=== PATIENT | male | born 1985 | race Caucasian/White ===

== ENCOUNTER → 2022-06-01 16:50 | Outpatient (CLI) | payer BC, SELFPAY ==
--- NOTE | ~2022-06-01 | MR_ITS ---
EXAMINATION: MR lumbar spine wo con DATE: 06/01/2022 17:26 INDICATION: Low back pain. Left foot drop. TECHNIQUE: Magnetic resonance imaging (MRI) of the lumbar spine was performed without intravenous con trast. Sequences included sagittal T2-weighted FSE, sagittal T2-weighted FS FSE, sagittal T1-weighted FSE, and axial T2-weighted FSE. COMPARISON: None FINDINGS: Bone alignment is normal. There is mild chronic anterior wedging of T12 vertebral body. The re are Schmorl's nodes at most levels. There is mildly decreased disc height from L2-L3 through L4-L5 . The distal spinal cord signal intensity is normal. The conus medullaris is at L1. The following dis c levels are specifically discussed: L1-L2: The disc does not extend beyond the endplate margin. There is mild bilateral facet joint osteo arthritis. There is no neural foraminal stenosis. There is no central canal stenosis. L2-L3: The disc is bulging with superimposed right central extrusion. There is mild bilateral facet j oint osteoarthritis. There is mild bilateral neural foraminal stenosis. There is mild central canal s tenosis. There is moderate stenosis of right lateral recess. L3-L4: The disc is bulging with superimposed central extrusion. There is mild bilateral facet joint o steoarthritis. There is mild bilateral neural foraminal stenosis. There is mild central canal stenosi s. L4-L5: The disc is bulging with superimposed left central extrusion with mass effect on left L5 nerve root in left lateral recess. There is mild bilateral facet joint osteoarthritis. There is mild bilat eral neural foraminal stenosis. There is mild central canal stenosis. There is moderate stenosis of l eft lateral recess. L5-S1: The disc is mildly bulging. There is severe right and moderate left facet joint osteoarthritis . There is mild left neural foraminal stenosis. There is mild central canal stenosis. IMPRESSION: 1. Moderate lumbar spondylosis. Of note, an extrusion at L4-L5 exerts mass effect on left L5 nerve ro ot. Reviewed, dictated and finalized at location A. IMPRESSION: 1. Moderate lumbar spondylosis. Of note, an extrusion at L4-L5 exerts mass effe ct on left L5 nerve root.
== END ==
PROVIDERS: PCP Internal Medicine; Visit Provider Neurological Surgery
DX: M21.372 Foot drop, left foot (principal); M47.896 Other spondylosis, lumbar region; M51.26 Other intervertebral disc displacement, lumbar region
CPT/HCPCS: 72148

== ENCOUNTER 2023-11-16 08:49 | Emergency (ER) | payer OTHER, SELFPAY ==
--- NOTE | ~2023-11-16 | XR_ITS ---
EXAMINATION: [id number] DATE: 11/16/2023 09:32 INDICATION: Left rib pain. Fall. TECHNIQUE: A frontal view of the chest and 2 views on 3 radiographs of the left ribs were obtained. COMPARISON: None. FINDINGS: There is no pneumonia, pleural effusion, or pneumothorax. The heart size is normal. There a re old healed left rib fractures. There is an acute fracture of left ninth rib. IMPRESSION: 1. Acute fracture of left ninth rib. Reviewed, dictated and finalized at location E. OR BOOKKEEPER
[2023-11-16 09:07] VITALS: BP 131/83; PULSE 71; RESP 16; TEMP 36.6; O2SAT 99
--- NOTE | 2023-11-16 09:53 | ED.GENADULT ---
HPI - General Adult General Chief complaint: Chest Pain Stated complaint: L RIB INJURY Time Seen by Provider: 11/16/23 09:15 Source: patient and RN notes reviewed Mode of arrival: ambulatory Limitations: no limitations History of Present Illness HPI narrative: Patient presents today complaining of left lateral rib pain after falling on ice while hunting last night. He currently rates his pain 7/10 and has been taking ibuprofen with mild relief. Pain increases with movement or deep breath. Related Data Home Medications Medication Instructions Recorded Confirmed folic acid 1 mg tablet 1 mg PO DAILY 06/24/22 11/16/23 Allergies Allergy/AdvReac Type Severity Reaction Status Date / Time NKDA Allergy Mild Unknown Uncoded 06/24/22 13:56 Review of Systems Review of Systems: CONSTITUTIONAL: Denies body aches, fever, chills, or sweats. EYES: Denies visual changes, redness, or discharge. ENT: Denies rhinorrhea, congestion, sore throat, or otalgia. CARDIOVASCULAR: Denies chest pain, palpitations, or edema. RESPIRATORY: Denies cough or dyspnea.+ left rib pain GASTROINTESTINAL: Denies abdominal pain, nausea, vomiting, or diarrhea. GENITOURINARY: Denies dysuria or hematuria. SKIN: Denies rash, itching, or wounds. MUSCULOSKELETAL: Denies back pain, joint pain, or myalgia. NEUROLOGIC: Denies headache, numbness, tingling, or weakness. PSYCH: Denies depression or anxiety. [facility] Family History Family History Mother Diabetes mellitus Thyroid disorder Social History Social History Smoking status: Never smoker Comments At time of signature, I have reviewed and agree with nursing past medical, surgical, social and family history unless otherwise noted. Please see nursing chart for further information. There is no relevant family history pertinent to the presenting complaint Exam Narrative: GENERAL: Well-appearing, well-nourished, and in no acute distress. HEAD: Normocephalic, atraumatic. EYES: EOMI. No redness or drainage. Conjunctivae normal. ENT: Mucous membranes pink and moist. NECK: Normal AROM. CHEST: No respiratory distress. Clear to auscultation. Tenderness to the left lateral ribs. No edema, ecchymosis, crepitus, or deformity noted. HEART: Regular rate and rhythm. No murmur appreciated. EXTREMITIES: Normal range of motion. No edema. SKIN: Warm, dry, no rash. Capillary refill normal. Normal skin turgor. NEURO: No focal deficits. Alert and oriented x3. Gait steady. PSYCH: Normal affect. No signs of depression or anxiety. Course Course Level of Care: Express Care Visit Vital Signs Vital signs: Vital Signs Temperature 97.9 F 11/16/23 09:07 Pulse Rate 71 11/16/23 09:07 Respiratory Rate 16 11/16/23 09:07 Blood Pressure 131/83 11/16/23 09:07 Pulse Oximetry 99 11/16/23 09:07 Temperature 97.9 F 11/16/23 09:07 Pulse Rate 71 11/16/23 09:07 Respiratory Rate 16 11/16/23 09:07 Blood Pressure 131/83 11/16/23 09:07 Pulse Oximetry 99 11/16/23 09:07 Reviewed Medical Decision Making MDM Narrative Medical decision making narrative: X-ray shows fracture of left 9th rib. Patient has been encouraged to continue ibuprofen for mild pain and inflammation. Will write prescription for [place] for more severe pain. Discussed splinting and deep breathing. Anticipatory guidance given. Differential Diagnosis Differential Diagnosis: Rib fracture, rib contusion Vital Signs Vital Signs: Vital Signs Temperature 97.9 F 11/16/23 09:07 Pulse Rate 71 11/16/23 09:07 Respiratory Rate 16 11/16/23 09:07 Blood Pressure 131/83 11/16/23 09:07 Pulse Oximetry 99 11/16/23 09:07 Temperature 97.9 F 11/16/23 09:07 Pulse Rate 71 11/16/23 09:07 Respiratory Rate 16 11/16/23 09:07 Blood Pressure 131/83 11/16/23 09:07 Pulse Oximetry 9
== END 2023-11-16 10:07 | disposition home or self-care (01) ==
PROVIDERS: Emergency Provider Nurse Practitioner; PCP Internal Medicine
DX: S22.32XA Fracture of one rib, left side, initial encounter for closed fracture (principal); W00.9XXA Unspecified fall due to ice and snow, initial encounter; E78.00 Pure hypercholesterolemia, unspecified
CPT/HCPCS: 71101; 99213; G0463

== ENCOUNTER 2024-01-24 13:35 | Emergency (ER) | payer OTHER, SELFPAY ==
[2024-01-24] VITALS (7 sets, daily range): BP systolic 137–158; BP diastolic 91–106; PULSE 93–101; RESP 12–18; O2SAT 100
--- NOTE | ~2024-01-24 | CT_ITS ---
EXAMINATION: CTA chest PE protocol DATE: 01/24/2024 15:42 INDICATION: Tachycardia. Shortness of breath. TECHNIQUE: Computed tomography (CT) pulmonary angiogram of the chest was performed with 100 mL Omnipa que-350 intravenous contrast. Additional 3D reconstructions utilizing coronal maximum intensity proje ction (MIP) were performed. Automated exposure control and iterative reconstruction technique were em ployed. The dose-length product was 969.11 mGy-cm. COMPARISON: None FINDINGS: No pulmonary embolism. Mild dependent atelectasis in the bilateral lower lobes. Calcified right lower lobe nodule consistent with old granulomatous disease. No pneumonia, pulmonary edema, pleural effusi on or pneumothorax. Heart size is normal. Small amount of atherosclerotic coronary artery calcificati on. No pericardial effusion. Thoracic aorta is normal in caliber with no dissection. No pathologicall y enlarged thoracic lymphadenopathy. Visualized upper abdomen is unremarkable. Moderate thoracic spon dylosis with chronic mild anterior wedging of a few mid to lower thoracic vertebral bodies. IMPRESSION: 1. No pulmonary embolism or other acute cardiopulmonary disease. Reviewed, dictated and finalized at location A.
--- NOTE | 2024-01-24 14:00 | ECG_ITS ---
Measurements Intervals [place] Rate: 100 P: 37 NE: 164 QRS: -14 QRSD: 109 T: 52 QT: 332 QTc: 429 Interpretive Statements SINUS TACHYCARDIA POSSIBLE LEFT ATRIAL ENLARGEMENT INCOMPLETE RIGHT BUNDLE BRANCH BLOCK BORDERLINE ECG NO PREVIOUS ECG AVAILABLE FOR COMPARISON Electronically Signed On 01-24-2024 14:14:52 CDT by Vel Vasquez D.O.
--- NOTE | 2024-01-24 14:23 | ED.ARRPALP ---
HPI - Arrhythmia/Palpitations General Chief Complaint: Arrhythmia/Palpitations Stated Complaint: increased HR Time Seen by Provider: 01/24/24 14:03 History of Present Illness HPI narrative: 38-year-old male presents to the emergency department for evaluation for evaluation of rapid heart rate. Patient is currently following up with cardiology to have a Holter monitor and outpatient echocardiogram for intermittent heart palpitations. Patient states that while he was at work today he had onset of rapid heart rate with rate up into the 130s. Patient states that he felt his heart was pounding some mild she was having difficulty resting. Patient is mentally the heart rate did improve. Patient is scheduled to have follow-up with Cardiology at [place]. Related Data Home Medications Medication Instructions Recorded Confirmed folic acid 1 mg tablet 1 mg PO DAILY 06/24/22 11/16/23 Allergies Allergy/AdvReac Type Severity Reaction Status Date / Time No Known Drug Allergies Allergy Verified 01/24/24 14:26 Review of Systems Review of Systems: All systems reviewed & are unremarkable except as noted in HPI and below PMFSH Family History Family History Mother Diabetes mellitus Thyroid disorder Social History Social History Smoking status: Never smoker Exam Narrative: APPEARANCE: Well appearing, no pain, no distress, well-nourished. HEAD: normocephalic, atraumatic. EYES: PERRLA/EOMI, conjunctivae clear. NOSE: Normal no drainage EARS:TMS clear with good light reflex. THROAT: Pharynx clear, no exudate. NECK: Supple. No adenopathy, no masses. RESPIRATORY: Airway patent, respirations nonlabored. Clear to auscultation bilaterally, no rales, rhonchi, wheezing. CARDIOVASCULAR: Sinus tachycardia ABDOMINAL: Soft, nontender, nondistended, normal bowel sounds MUSCULOSKELETAL: Moves all extremities. Strength/ROM intact, No edema, No calf tenderness. NEURO: Alert. Cranial nerves II through XII intact. Grossly intact SKIN: Warm, dry. 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 Vital Signs Vital signs: Vital Signs Pulse Rate 93 01/24/24 14:42 Pulse Rate 97 01/24/24 15:46 Respiratory Rate 16 01/24/24 15:46 Blood Pressure 155/91 H 01/24/24 15:46 Pulse Oximetry 100 01/24/24 15:46 MDM - Arrhythmia/Palpitations MDM Narrative Medical decision making narrative: 38-year-old male present to the ED for evaluation of heart palpitations. Since being in the emergency department patient has had no tachycardia. Patient was afebrile with no leukocytosis and a stable hemoglobin. Patient's D-dimer was elevated but CTA PE study showed no evidence of pulmonary embolism. Patient had no significant abnormalities on his CMP. Patient's TSH was elevated. Patient was advised to decrease his alcohol consumption and to continue have close follow-up with his timber estimator as outpatient. Patient does have an outpatient Holter monitor scheduled. Patient family updated the results of the workup and they are comfortable with plan for discharge and close follow-up. Differential Diagnosis Differential diagnosis: Likely palpitations, sinus tachycardia, artial fibrillation, artial flutter, ventricular premature beats, supraventricular tachycardia and ventricular tachycardia Lab Data Attestation: I reviewed the patient's lab results. 01/24/24 14:30 01/24/24 14:30 Labs: Lab Results 01/24/24 Range/Units 14:30 WBC 6.2 (4.5-10.0) K/mm3 RBC 5.07 (4.6-6.20) M/mm3 Hgb 15.7 (14.0-18.0) g/dL Hct 44.7 (42.0-52.0) % MCV 88.2 (80-100) fl MCH 31.0 (26-34) pg MCHC 35.1 (32-36) g/dl RDW 12.5 (11.5-14.5) % Plt Count 205 (150-375) k/mm3 MPV 9.4 (7.4-10.4) fl Immature
[2024-01-24] MEDS: SODIUM CHLORIDE 0.9% IV 1,000 ML 999 ML IV CONT (14:33)
[2024-01-24 14:37] LABS: Basophils Percent Auto 0.2 % (0.2-1.2); Eosinophils Percent Auto 0.5 % (0-4.4); Hematocrit 44.7 % (42.0-52.0); Hemoglobin 15.7 g/dL (14.0-18.0); Immature Granulocyte Absolute 0.03 K/mm3 (0.00-0.031); Immature Granulocyte Percent A 0.5 % (0-0.5); Lymphocytes Absolute Auto 1.31 K/mm3 (0.9-3.2); Mean Corpuscular HGB Conc 35.1 g/dl (32-36); Mean Corpuscular Volume 88.2 fl (80-100); Mean Platelet Volume 9.4 fl (7.4-10.4); Monocytes Absolute Auto 0.7 K/mm3 (0.1-0.6); Monocytes Percent Auto 11.6 % (2.6-8.5); Neutrophils Absolute Auto 4.1 K/mm3 (1.3-6.7); Neutrophils Percent Auto 66.2 % (45.5-73.1); Platelet Count Result 205 k/mm3 (150-375); Red Blood Count 5.07 M/mm3 (4.6-6.20); Red Cell Distribution Width 12.5 % (11.5-14.5); White Blood Count 6.2 K/mm3 (4.5-10.0)
[2024-01-24 14:52] LABS: Alanine Aminotransferase 62 U/L (6-50); Albumin Level 4.8 g/dL (3.5-5.1); Alkaline Phosphatase 92 U/L (38-126); Anion Gap 7 mmol/L (4-12); Aspartate Amino Transferase 65 U/L (17-59); Bilirubin,Total 1.1 mg/dL (0.2-1.3); Blood Urea Nitrogen 14 mg/dL (9-20); Calcium 9.5 mg/dL (8.4-10.2); Carbon Dioxide 27 mmol/L (22-30); Chloride 103 mmol/L (98-107); Estimated CRCL calculation 166 ml/min; Estimated Glomerular Filt Rate > 60; Glucose 96 mg/dL (65-110); Magnesium 1.7 mg/dL (1.6-2.3); Potassium 3.4 mmol/L (3.4-5.0); Sodium 137 mmol/L (137-145)
[2024-01-24 14:56] LABS: Ethanol < 10 mg/dL (<10)
[2024-01-24 15:01] LABS: NT Pro B Type Natriuretic Pept 111 pg/mL (19.9-100)
[2024-01-24 16:16] LABS: Free T4 Free Thyroxine Reflex 1.14 ng/dL (0.78-2.19)
[2024-01-24 17:15] LABS: Total Triiodothyronine (T3) 2.22 NG/ML (0.97-1.69)
== END 2024-01-24 16:28 | disposition home or self-care (01) ==
PROVIDERS: Emergency Provider Emergency Medicine; PCP Internal Medicine
DX: R00.0 Tachycardia, unspecified (principal)
CPT/HCPCS: 36415; 71275; 80053; 80307; 83735; 83880; 84439; 84443; 84480; 85025; 85380; 93005; 96360; 99284; J7030; Q9967

== ENCOUNTER 2024-12-15 22:49 | Emergency (ER) | payer OTHER, SELFPAY ==
--- NOTE | ~2024-12-15 | XR_ITS ---
Left elbow Technique: AP, oblique, and lateral views were obtained. Clinical History: Pain Findings: No acute fracture or dislocation is seen. Osseous alignment is anatomic. Joint spaces are p reserved. There is mild enthesopathic change at the triceps tendon insertion. There is no displacemen t of the fat pads, and soft tissues are otherwise unremarkable. Impression: No acute abnormality. Reviewed, dictated and finalized at location . FEEDER Impression: No acute abnormality.
--- OUTSIDE RECORDS SUMMARY | 2024-12-15 22:51 | XMS_ITS | Clinical Summary ---
Author Organization [facility] Address [facility] access hospital[address] [place] [address] Care Team Providers Care Senior Compliance Analyst Name Role Phone Renetta Padilla MD Primary Care Provider Allergies No known active allergies Medications atorvastatin (LIPITOR) 40 MG tablet Take 1 tablet (40 mg total) by mouth daily. 12/30/2023 Active Active Problems Problem Noted Date Diagnosed Date Palpitations 01/04/2024 Hypothyroidism, unspecified 01/04/2024 Mixed hyperlipidemia 01/04/2024 Hypertriglyceridemia 01/04/2024 GERD (gastroesophageal reflux disease) Family History Medical History Relation Comments Cancer Maternal Grandmother Diabetes Mother Thyroid Disease Mother Relation Status Comments Maternal Grandmother Mother Social History Tobacco Use Types Packs/Day Years Used Date Smoking Tobacco: Former Cigarettes Q uit: 2020 Passive Smoke Exposure: Past Smokeless Tobacco: Never Alcohol Use Standard Drinks/Week Comments Yes 0 (1 standard drink = 0.6 oz pur e alcohol) Sex and Gender Information Value Date Recorded Sex Assigned at Not on file 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 Gender Identity Not on file Sexual Orientation Not on file Last Filed Vital Signs Vital Sign Reading Time Taken Comments Blood Pressure 130/82 01/08/2024 3:14 PM CDT Pulse 75 01/08/2024 3:14 PM CDT Temperature - - Respiratory Rate - - Oxygen Saturation 97% 01/08/2024 3:14 PM CDT Inhaled Oxygen Concentration - - Weight 115.2 kg (254 lb) 01/08/2024 3:14 PM CDT Height 185.4 cm (6' 1 ) 01/08/2024 3:14 PM CDT Body Mass Index 33.51 01/08/2024 3:14 PM CDT Plan of Treatment Health Maintenance Due Date Last Done Comments Annual Physical 1990 Hepatitis C 2005 Hepatitis B Vaccines (1 of 3 - 19+ 3-dose series) 2006 COVID-19 Vaccine (3 2023-2 5 season) 2024 10/31/2021, 02/04/2021 Influenza Adult (#1) 2024 09/18/2019 DTaP, Tdap and Td Vaccines ( 2 - Td or Tdap) 09/18/2029 09/18/2019 HPV Vaccines Aged Out No longer eligi ble based on patient's age to complete this topic Meningococcal B Vaccine Aged Out No l onger eligible based on patient's age to complete this topic Meningococcal Vaccine Aged Out No toni frances eligible based on patient's age to complete this topic Pneumococcal Vaccine: Pediatrics (0 to 5 Years) and At-Risk Patients (6 to 64 Years) Aged Out No longer eligible b ased on patient's age to complete this topic RSV Immunizations Under 20 Months Aged Out No longer eligible b ased on patient's age to complete this topic Insurance [facility] Care Teams Senior Compliance Analyst Relationship Specialty Start Date End Date Renetta Padilla MD [address] [place] [address] PCP - General INTERNAL MEDICINE 12/26/23
--- OUTSIDE RECORDS SUMMARY | 2024-12-15 22:51 | XMS_ITS | Clinical Summary ---
Author Organization [facility] Address [address] [address] Phone Care Team Providers Care Compensation Administrator Name Role Phone Unavailable Primary Care Provider Unavailabl e Allergies No known active allergies Medications No known medications Family History Medical History Relation Name Comments Diabetes Maternal Grandmother Diabetes Mother Thyroid Disease Mother Relation Name Status Comments Father Alive Maternal Grandmother Mother Alive Social History Tobacco Use Types Packs/Day Years Used Date Smoking Tobacco: Former Cigarettes 1 6 Smokeless Tobacco: Never Alcohol Use Standard Drinks/Week Comments Yes 15 (1 standard drink = 0.6 oz pu re alcohol) Sex and Gender Information Value Date Recorded Sex Assigned at Not on file 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 Gender Identity Not on file Sexual Orientation Not on file Last Filed Vital Signs Vital Sign Reading Time Taken Comments Blood Pressure 126/82 01/29/2016 4:04 PM CDT Pulse 73 01/29/2016 4:04 PM CDT Temperature 36.7 C (98 F) 01/29/2016 4:04 PM CDT Respiratory Rate 18 01/29/2016 4:04 PM CDT Oxygen Saturation 98% 01/29/2016 4:04 PM CDT Inhaled Oxygen Concentration - - Weight 119.3 kg (263 lb) 01/29/2016 4:04 PM CDT Height 188 cm (6' 2 ) 01/29/2016 4:04 PM CDT Body Mass Index 33.77 01/29/2016 4:04 PM CDT Plan of Treatment Health Maintenance Due Date Last Done Comments Hepatitis C Virus (HCV) Screening 1987 Hepatitis B Immunization (1 of 3 - 19+ 3-dose series) 2006 Influenza Immunization (#1) 2024 09/18/2019 SARS-COV-2 Immunization ( season) 2024 10/31/2021, 02/04/2021 Respiratory Syncytial Virus (RSV) Immunization (Adult) (1 - 1-dose 75+ series) 2062 DTaP/Tdap/Td Immunization Discontinued 09/18/2019 TdaP Immunization Completed 09/18/2019 Meningococcal Immunization (ACWY) Aged Out No longer eligible based on patient's age to complete this topic Pneumococcal Immunization Combined Aged Out No longer eligible based on patient's age to complete this topic Rotavirus Immunization Aged Out No lo nger eligible based on patient's age to complete this topic
--- OUTSIDE RECORDS SUMMARY | 2024-12-15 22:51 | XMS_ITS | Encounter Summary ---
Author Organization [facility] Address [facility] [place] [address] Care Team Providers Care Design Maker Name Role Phone Renetta Padilla MD Primary Care Provider Encounter Details Date Type Department Care Team (Late st Contact Info) Description 01/09/2024 Abstract [facility] [address] Joana Macias MA Social History Tobacco Use Types Packs/Day Years Used Date Smoking Tobacco: Former Cigarettes Q uit: 2020 Passive Smoke Exposure: Past Smokeless Tobacco: Never Alcohol Use Standard Drinks/Week Comments Yes 0 (1 standard drink = 0.6 oz pur e alcohol) Sex and Gender Information Value Date Recorded Sex Assigned at Not on file 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 Gender Identity Not on file Sexual Orientation Not on file documented as of this encounter Plan of Treatment Not on file documented as of this encounter Procedures Procedure Name Priority Date/Time Associated Diagnosis Comments COMPREHENSIVE METABOLIC PANEL Routine 11/11/2023 LIPID PANEL Routine 11/11/2023 CBC, MANUAL DIFF Routine 11/11/2023 THYROID STIM HORMONE TSH Routine 11/11/2023 documented in this encounter Results * COMPREHENSIVE METABOLIC PANEL (11/11/2023) SODIUM S/P/B 139 GLUCOSE 94 mg/dL AST 21 BUN 13 CREATININE S/P/B 0.81 0.7 - 1.3 CALCIUM S/P/B 9.3 POTASSIUM S/P/B 4.3 CHLORIDE S/P/B 103 ALT 27 GFR ESTIMATE 117 us Default History Genericprovider LABORATORY Final Result * LIPID PANEL (11/11/2023) CHOLESTEROL 251 TRIGLYCERIDES 484 HDL 38 NON HDL CHOLESTEROL 213 us Default History Genericprovider LABORATORY Final Result * CBC, MANUAL DIFF (11/11/2023) Pathologist [facility] WBC 4.7 HGB 14.5 HCT 44.3 PLT 228 us Default History Genericprovider LABORATORY Final Result * THYROID STIM HORMONE, TSH (11/11/2023) TSH 3.78 us Default History Genericprovider LABORATORY Final Result documented in this encounter Visit Diagnoses Not on filedocumented in this encounter Care Teams Design Maker Relationship Specialty Start Date End Date Renetta Padilla MD [facility] [place] [address] PCP - General INTERNAL MEDICINE 12/26/23 documented as of this encounter
[2024-12-15 22:59] VITALS: BP 126/82; PULSE 96; RESP 18; TEMP 36.4; O2SAT 100
--- NOTE | 2024-12-16 00:42 | PC.NURSE ---
Pt ambulatory to ED triage desk and states that he is not wanting to wait to be seen and states I got a x-ray done I can just look at my results tomorrow . Pt was given a mychart pamphlet and advised to stay. Pt states he is not playing the waiting game . Pt left without being seen.
--- OUTSIDE RECORDS SUMMARY | 2024-12-16 00:55 | XMS_ITS | Clinical Summary ---
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
--- OUTSIDE RECORDS SUMMARY | 2024-12-16 00:55 | XMS_ITS | Encounter Summary ---
Author Organization [facility] Address [facility] access [facility] [place] [address] Care Team Providers Care Web Site Developer Name Role Phone Renetta Padilla MD Primary Care Provider Encounter Details Date Type Department Care Team (Late st Contact Info) Description 01/09/2024 Abstract [facility] [address] Joana Macias MA Social History Tobacco Use Types Packs/Day Years Used Date Smoking Tobacco: Former Cigarettes Q uit: 2020 Passive Smoke Exposure: Past Smokeless Tobacco: Never Alcohol Use Standard Drinks/Week Comments Yes 0 (1 standard drink = 0.6 oz pur e alcohol) Sex and Gender Information Value Date Recorded Sex Assigned at Not on file 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 Gender Identity Not on file Sexual Orientation [...] Result * CBC, MANUAL DIFF (11/11/2023) Pathologist [facility] WBC 4.7 HGB 14.5 HCT 44.3 PLT 228 us Default History Genericprovider LABORATORY Final Result * THYROID STIM HORMONE, TSH (11/11/2023) TSH 3.78 us Default History Genericprovider LABORATORY Final Result documented in this encounter Visit Diagnoses Not on filedocumented in this encounter Care Teams Web Site Developer Relationship Specialty Start Date End Date Renetta Padilla MD [facility] [place] [address] PCP - General INTERNAL MEDICINE 12/26/23 documented as of this encounter
--- OUTSIDE RECORDS SUMMARY | 2024-12-16 00:55 | XMS_ITS | Clinical Summary ---
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
== END 2024-12-16 00:42 | disposition left against medical advice (07) ==
PROVIDERS: Emergency Provider Physician Assistant; PCP Internal Medicine
DX: S59.902A Unspecified injury of left elbow, initial encounter (principal)
CPT/HCPCS: 73080; 99199

== ENCOUNTER 2024-12-16 09:28 | Emergency (ER) | payer OTHER, SELFPAY ==
--- NOTE | 2024-12-16 09:31 | ED.UPPEXIN ---
HPI - Extremity Injury (Upper) General Chief Complaint: Wound/Laceration Stated Complaint: Injured Left Elbow Time Seen by Provider: 12/16/24 09:30 Source: patient Mode of arrival: ambulatory Limitations: no limitations History of Present Illness HPI narrative: Siva is a 39 year old male patient presenting to the clinic today with c/o a left elbow injury. He states he went to the ER last night, had an x-ray completed of the left elbow, and he left prior to being evaluated. Has a small laceration to the left elbow with some tissue sticking out from the wound. Injury occurred around 930 when he fell on ice in his driveway. Tetanus is unknown Related Data Home Medications ?Medication ?Instructions ?Recorded ?Confirmed ?Last Taken ?Type folic acid 1 mg tablet 1 mg PO DAILY 06/24/22 11/16/23 Unknown History Allergies Allergy/AdvReac Type Severity Reaction Status Date / Time No Known Drug Allergies Allergy Unknown Other Verified 12/16/24 09:39 Review of Systems Review of Systems: Pertinent positives per HPI. Patient denies any fever, chills, rash, headache, visual changes, dizziness, cough, runny nose, sore throat, shortness of breath, chest pain, palpitations, nausea, vomiting, diarrhea, constipation, abdominal pain, or any urinary issues. [facility] Family History Family History Mother Diabetes mellitus Thyroid disorder Social History Social History Smoking status: Never smoker Comments At the time of my signature, I reviewed and agree with the nursing past medical, surgical, social, and family history. There is no relevant family history pertinent to the patient complaint. Exam Narrative: General: Well-developed, obese, in no apparent distress Head: Normocephalic, atraumatic. Cardio: Regular rate and rhythm, s1 and s2 normal, no murmur appreciated. Resp: Clear to auscultation bilaterally, no rhonchi, rales, wheezing or rubs. Integumentary: [place], warm, and dry, 0.5 cm laceration to the left elbow with subcutaneous tissue protruding out the wound. Bleeding is controlled Course Course Emergency Course: Portions of this record may have been created with voice recognition software. Level of Care: Express Care Visit Vital Signs Vital signs: Vital Signs Temperature 37.2 C 12/16/24 09:38 Pulse Rate 90 12/16/24 09:38 Respiratory Rate 16 12/16/24 09:38 Blood Pressure 152/95 H 12/16/24 09:38 Pulse Oximetry 99 12/16/24 09:38 Oxygen Delivery Room Air 12/16/24 09:38 Temperature 37.2 C 12/16/24 09:38 Pulse Rate 90 12/16/24 09:38 Respiratory Rate 16 12/16/24 09:38 Blood Pressure 152/95 H 12/16/24 09:38 Pulse Oximetry 99 12/16/24 09:38 Oxygen Delivery Room Air 12/16/24 09:38 Vital signs reviewed Procedures Laceration Laceration 1: Date: 12/16/24 Site: upper extremity (posterior elbow laceration) Side (If applicable): left Size (cm): 0.5 Description: linear Depth: simple, single layer Local Anesthetic: lidocaine 1% and with epi Amount of anesthesia used (mL): 1 Pre-repair: wound explored, irrigated and minor debridement ====== Skin Level ====== Skin layer closed with: nylon Size (cm): 4-0 Number of sutures: 1 Technique: simple, interrupted ====== Subcutaneous Layer ====== ====== Muscle Layer ====== ====== Tendon Layer ====== Dressing: Verbal consent obtained for laceration repair. Risk and benefits explained and patient voiced understanding. Area was cleansed with antiseptic wound wash and a 27 gauge needle was then used to instill (1) ml of 1% lidocaine with epi into the wound edges. Area was prepped and draped using sterile technique. A pair of iris scissors was used to remove protruding subcutaneous tissue. A 4-0 suture on a p needle was used to place (1) interrupted sutures bringing the wound edges together- well approximated. Patient tolerated procedure well. Sterile dressing applied. MDM - Extremity Injury (Upper) MDM Narrative Medical decision making narrative: At the time of visit patient is resting comfortably on the exam table. Patient appears to be nontoxic. Laceration is over 12 hours old however it is over the elbow joint and opens up when he flexes his elbow. Will remove cutaneous tissue protruding out and place 1 suture in the wound for closure in place him on cephalexin. Diagnostics: X-ray of the left elbow was performed in the emergency room in is negative for any acute fracture or malalignment. Procedures: Laceration repair was performed placing 1 suture bringing wound edges well approximate. Medications: Tdap 0.5 mL IM given in the clinic today Plan: Patient has laceration to the left elbow with some protruding subcutaneous tissue. Subcutaneous tissue was removed. Laceration repair was performed. Will place the patient on prophylactic cephalexin since the wound is 12 hours old. Supportive measures were discussed with the patient and they voiced understanding discharge instructions and agrees to treatment plan. Return precautions reviewed Differential Diagnosis Differential diagnosis: Likely other (Elbow fracture, laceration, elbow contusion, elbow abrasion, cellulitis, wound check) Discharge Plan Discharge Clinical Impression: Laceration of elbow without complication Qualifiers: Encounter type: initial encounter Laterality: left Qualified Code(s): S51.012A - Laceration without foreign body of left elbow, initial encounter Patient Disposition: Home, Self-Care Condition: Stable Instructions: Antibiotic Form, Laceration (ED) Additional Instructions: X-rays that was performed in the ER is negative for any sign of fracture or malalignment of the left elbow Leave bandage on for 24 hours then may remove and apply band aide covering as needed. Take cephalexin as prescribed. Keep wound clean and dry Wash daily with soap and water pat dry Skin sutures out in 10-14 days. Watch for signs and symptoms of infection- redness, streaking, swelling, purulent discharge, or increase in pain. Follow up with your PCP for suture removal or return to the Express care. Patient Language: [place]ese Prescriptions: New cephalexin 500 mg capsule 500 mg PO Q12H 7 Days Qty: 14 0RF No Action hydrocodone-acetaminophen 5-325 mg tablet 1 tablet PO Q8H PRN (Reason: pain) Qty: 15 0RF folic acid 1 mg tablet 1 mg PO DAILY Follow-up/Referrals: PHYSICIAN,FARM LOAN REPRESENTATIVE [Primary Care Provider] - Time of Disposition: 09:58 Quality NIHSS Nursing Documentation ED NIHSS nursing documentation: reviewed/agree
[2024-12-16 09:38] VITALS: BP 152/95; PULSE 90; RESP 16; TEMP 37.2; O2SAT 99
[2024-12-16] MEDS: TETANUS,DIPHTHERIA,AC PERTUSSIS ADULT (0.5 ML) BOOSTRIX IM (09:50)
[2024-12-16] MEDS: LIDO 1%/EPINEPHRINE 1:100,000 20 ML VIAL INFILTRATE (09:50)
== END 2024-12-16 10:00 | disposition home or self-care (01) ==
PROVIDERS: Emergency Provider Nurse Practitioner Family
DX: S51.012A Laceration without foreign body of left elbow, initial encounter (principal); W00.9XXA Unspecified fall due to ice and snow, initial encounter; Z23 Encounter for immunization
CPT/HCPCS: 12001; 90471; 90715; 99213; G0463; J2004

== ENCOUNTER 2024-12-20 17:13 | Emergency (ER) | payer OTHER, SELFPAY ==
--- NOTE | ~2024-12-20 | XR_ITS ---
EXAMINATION: XR foot LT min 3V DATE: 12/20/2024 17:35 INDICATION: Left foot pain. TECHNIQUE: 4 views of left foot were obtained. COMPARISON: None. FINDINGS: Alignment is normal. No fracture. There is mild osteoarthritis of first metatarsophalangeal joint and some of the interphalangeal joints. There is an enthesophyte at posterior aspect of calcan eal tuberosity. IMPRESSION: 1. Mild polyarticular osteoarthritis. Reviewed, dictated and finalized at location A. 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
[2024-12-20 17:23] VITALS: BP 147/95; PULSE 82; RESP 16; TEMP 36.9; O2SAT 100
--- NOTE | 2024-12-20 18:44 | ED.GENADULT ---
HPI - General Adult General Chief complaint: Extremity Injury, Lower Stated complaint: Injured Foot Source: patient Mode of arrival: ambulatory Limitations: no limitations History of Present Illness HPI narrative: PATIENT PRESENTS FOR EVALUATION OF LEFT FOOT PAIN. SYMPTOM ONSET TODAY. HE WAS LIFTING A VERY HEAVY SCALE WITH ANOTHER CO-WORKER WHILE WORKING TODAY WHEN THE OTHER INDIVIDUAL DROPPED HIS END OF THE SCALE. THE SCALE THEN LANDED ON PATIENT'S LEFT FOOT. HE HAS REDNESS AND BRUISING TO THE DORSAL ASPECT OF THE LEFT FOOT. AT REST HIS PAIN IS 5/10 IN SEVERITY BUT BECOMES EXCRUCIATING WHEN HE BEARS WEIGHT ON THE AFFECTED EXTREMITY. HE HAS NOT TAKEN ANY MEDICATION TO ASSIST SYMPTOMS. DENIES PARESTHESIAS. HE HAS A HISTORY OF AN INJURY TO THE LEFT LOWER LEG IN THE PAST WITH CHRONIC SWELLING IN THAT LEG. 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 HE WAS WEARING HARD-TOE BOOTS AT THE TIME OF THE EVENT. Related Data Allergies Allergy/AdvReac Type Severity Reaction Status Date / Time No Known Drug Allergies Allergy Unknown Other Verified 12/20/24 17:19 Review of Systems Review of Systems: CONSTITUTIONAL: DENIES FEVER, CHILLS, OR SWEATS. EYES: DENIES VISUAL CHANGES, REDNESS, OR DISCHARGE. ENT: DENIES RHINORRHEA, CONGESTION, SORE THROAT, OR OTALGIA. CARDIOVASCULAR: DENIES CHEST PAIN, PALPITATIONS, OR EDEMA. RESPIRATORY: DENIES COUGH OR DYSPNEA. GASTROINTESTINAL: DENIES ABDOMINAL PAIN, NAUSEA, VOMITING, OR DIARRHEA. GENITOURINARY: DENIES DYSURIA OR HEMATURIA. SKIN: REPORTS REDNESS AND BRUISING TO THE LEFT FOOT MUSCULOSKELETAL: REPORTS PAIN AND SWELLING IN THE LEFT FOOT. NEUROLOGIC: DENIES HEADACHE, NUMBNESS, DIZZINESS, OR WEAKNESS. PSYCHIATRIC: DENIES ANXIETY OR DEPRESSION. [facility] Past Medical History Medical History Leg injury Surgical History Surgical History No pertinent past surgical history Family History Family History Mother Diabetes mellitus Thyroid disorder Social History Social History Smoking status: Never smoker Exam Narrative: GENERAL: WELL-APPEARING, WELL-NOURISHED, AND IN NO ACUTE DISTRESS. HEAD: NORMOCEPHALIC, ATRAUMATIC. EYES: PERRLA AND EOMI. ENT: NARES CLEAR, NO RHINORRHEA OR EPISTAXIS. MUCOUS MEMBRANES MOIST. OROPHARYNX WITHOUT TONSILLAR HYPERTROPHY EXUDATE OR OTHER LESIONS. BILATERAL TMS PE[place] NONBULGING NECK: SUPPLE. NO ADENOPATHY OR MASSES. NO CAROTID BRUITS OR JVD CHEST: CLEAR TO AUSCULTATION. NO RESPIRATORY DISTRESS. NO WHEEZES RALES OR RHONCHI HEART: REGULAR RATE AND RHYTHM. NO MURMUR HEARD. NORMAL PERIPHERAL PULSES. ABDOMEN: SOFT, NONTENDER, NONDISTENDED, NORMAL ACTIVE BOWEL SOUNDS. EXTREMITIES: NORMAL RANGE OF MOTION. LEFT FOOT IS EDEMATOUS. PATIENT HAS TENDERNESS OVER THE DORSAL ASPECT OF THE MID SECTION LEFT FOOT SKIN: THERE IS ERYTHEMA AND ECCHYMOSIS TO THE DORSAL ASPECT OF THE LEFT FOOT NEURO: NO FOCAL DEFICITS. ALERT AND ORIENTED X3. PSYCH: NORMAL MOOD AND AFFECT. Course Course Emergency Course: THIS IS A 39-YEAR-OLD MALE WHO PRESENTED FOR EVALUATION OF LEFT FOOT INJURY. HE HAS EVIDENCE OF CONTUSION. WHILE THERE IS NO FRACTURE ON X-RAY. HE COULD HAVE AN OCCULT FRACTURE. RECOMMENDED HE REMAIN NONWEIGHTBEARING TO IS CLEARED BY WORKMEN'S COMPENSATION/ORTHOPEDICS. WILL DC WITH HYDROCODONE. HE WAS GIVEN PAPER SCRIPT BECAUSE IT WOULD NOT CROSS ELECTRONICALLY. ADVISED ON RICE THERAPY. GO TO THE ER FOR INTRACTABLE PAIN OR WORSENING SYMPTOMS. PT IN AGREEMENT WITH PLAN OF CARE. Level of Care: Express Care Visit Vital Signs Vital signs: Vital Signs Temperature 36.9 C 12/20/24 17:23 Pulse Rate 82 12/20/24 17:23 Respiratory Rate 16 12/20/24 17:23 Blood Pressure 147/95 H 12/20/24 17:23 Pulse Oximetry 100 12/20/24 17:23 Temperature 36.9 C 12/20/24 17:23 Pulse Rate 82 12/20/24 17:23 Respiratory Rate 16 12/20/24 17:23 Blood Pressure 147/95 H 12/20/24 17:23 Pulse Oximetry 100 12/20/24 17:23 Medical Decision Making Vital Signs Vital Signs: Vital Signs Temperature 36.9 C 12/20/24 17:23 Pulse Rate 82 12/20/24 17:23 Respiratory Rate 16 12/20/24 17:23 Blood Pressure 147/95 H 12/20/24 17:23 Pulse Oximetry 100 12/20/24 17:23 Temperature 36.9 C 12/20/24 17:23 Pulse Rate 82 12/20/24 17:23 Respiratory Rate 16 12/20/24 17:23 Blood Pressure 147/95 H 12/20/24 17:23 Pulse Oximetry 100 12/20/24 17:23 Imaging Data Radiologist's impression: EXAMINATION: XR foot LT min 3V DATE: 12/20/2024 17:35 INDICATION: Left foot pain. TECHNIQUE: 4 views of left foot were obtained. COMPARISON: None. FINDINGS: Alignment is normal. No fracture. There is mild osteoarthritis of first metatarsophalangeal joint and some of the interphalangeal joints. There is an enthesophyte at posterior aspect of calcaneal tuberosity. IMPRESSION: 1. Mild polyarticular osteoarthritis. Discharge Plan Discharge Clinical Impression: Contusion of foot, left Patient Disposition: Home, Self-Care Condition: Stable Instructions: Antibiotic Form, Contusion in Adults (ED) Additional Instructions: PLEASE ICE YOUR LEFT FOOT TAKE IBUPROFEN FOR PAIN KEEP LEFT LEG ELEVATED DO NOT PUT WEIGHT ON LEFT LEG FOLLOW UP WITH ORTHOPEDICS NEXT WEEK CALL YOUR HR DEPARTMENT FOR WORKMAN'S COMPENSATION FOLLOW UP Patient Language: Italian Prescriptions: New hydrocodone-acetaminophen 5-325 mg tablet 1 - 2 tablet PO Q8H PRN (Reason: pain) Qty: 15 0RF No Action cephalexin 500 mg capsule 500 mg PO Q12H 7 Days Qty: 14 0RF Follow-up/Referrals: Isidoro Mendez MD [Physician] - Stand Alone Forms: Work/School Release IP Time of Disposition: 18:25
== END 2024-12-20 18:32 | disposition home or self-care (01) ==
PROVIDERS: Emergency Provider Nurse Practitioner
DX: S90.32XA Contusion of left foot, initial encounter (principal); W20.8XXA Other cause of strike by thrown, projected or falling object, initial encounter; Y99.0 Civilian activity done for income or pay
CPT/HCPCS: 73630; 99213; G0463